=== PATIENT | female | born 1950 | race Caucasian/White ===

== ENCOUNTER 2022-06-16 09:31 | Outpatient (CLI) | payer MEDICARE, OTHER ==
[2022-06-16 10:13] LABS: ALBUMIN 4.7 g/dL (3.2-5.5); ALBUMIN/GLOBULIN RATIO 1.3 (1.0-2.2); ALKALINE PHOSPHATASE 80 IU/L (42-121); ALT ALANINE AMINOTRANSFERASE 19 IU/L (10-60); AST ASPARTATE AMINOTRANSFERASE 20 IU/L (10-42); BILIRUBIN,TOTAL 0.8 mg/dL (0.2-1.0); BUN - BLOOD UREA NITROGEN 19 mg/dL (6-20); CALCIUM 9.8 mg/dL (8.5-10.3); CARBON DIOXIDE - CO2 28 mmol/L (21-32); CHLORIDE 104 mmol/L (101-111); CHOL/HDL RATIO 2.2 (<4.4); CHOLESTEROL 155 mg/dL; CREATININE 0.6 mg/dL (0.4-1.0); GFR - MDRD 99 (>89); GLUCOSE 141 mg/dL (70-100); HDL CHOLESTEROL 70 mg/dL; POTASSIUM 4.2 mmol/L (3.5-5.0); SODIUM 141 mmol/L (135-145); TOTAL PROTEIN 8.2 g/dL (6.7-8.2); TRIGLYCERIDES 30 mg/dL
[2022-06-16 11:12] LABS: ESTIMATED AVERAGE GLUCOSE 114 mg/dL (70-100); HEMOGLOBIN A1c% 5.6 % (4.27-6.07)
== END 2022-06-16 09:32 | disposition home or self-care (01) ==
LOC: LAB 09:31
PROVIDERS: ATTEND Internal Medicine
DX: E11.9 Type 2 diabetes mellitus without complications (principal); E78.5 Hyperlipidemia, unspecified
CPT/HCPCS: 36415; 80053; 80061; 83036; 83721

== ENCOUNTER 2022-09-15 10:35 | Outpatient (CLI) | payer MEDICARE, OTHER | END 2022-09-15 10:36 | disposition home or self-care (01) | LOC: NS 10:35 | PROVIDERS: ATTEND Internal Medicine | DX: E11.9 Type 2 diabetes mellitus without complications (principal); Z71.3 Dietary counseling and surveillance; Z71.89 Other specified counseling; Z79.84 Long term (current) use of oral hypoglycemic drugs | CPT/HCPCS: 97802 ==

== ENCOUNTER 2022-11-23 08:50 | Outpatient (CLI) | payer MEDICARE, OTHER ==
[2022-11-23 09:18] LABS: ALBUMIN 4.6 g/dL (3.2-5.5); ALBUMIN/GLOBULIN RATIO 1.4 (1.0-2.2); BILIRUBIN,TOTAL 0.7 mg/dL (0.2-1.0); CALCIUM 9.9 mg/dL (8.5-10.3); CREATININE 0.8 mg/dL (0.6-1.3); POTASSIUM 4.1 mmol/L (3.5-4.5); TOTAL PROTEIN 7.8 g/dL (6.4-8.9)
[2022-11-23 14:16] LABS: ESTIMATED AVERAGE GLUCOSE 111 mg/dL (70-100); HEMOGLOBIN A1c% 5.5 % (4.27-6.07)
== END 2022-11-23 08:51 | disposition home or self-care (01) ==
LOC: LAB 08:50
PROVIDERS: ATTEND Internal Medicine
DX: E11.9 Type 2 diabetes mellitus without complications (principal); E53.8 Deficiency of other specified B group vitamins
CPT/HCPCS: 36415; 80053; 82607; 83036

== ENCOUNTER 2023-12-20 10:27 | Emergency (ER) | payer MEDICARE, OTHER ==
[2023-12-20 11:01] VITALS: BP 132/69; O2SAT 99
--- NOTE | 2023-12-20 11:02 | ED Physician Documentation ---
History of Present Illness - Stated complaint Stated Complaint: RT WRIST PX - Chief complaint Chief Complaint: Ext Problem - Additonal information Additional information: 73-year-old female with history of high cholesterol and type 2 diabetes [id number] presents emergency department for worsening right wrist pain. Patient says that she first started to notice the pain on Monday and it has gradually increased in severity after a busy weekend of lifting heavy boxes. She said that yesterday she had tried to apply heat to it which made it significantly worse. She has had no fevers or chills says that her type 2 diabetes is very well-controlled no nausea or vomiting. Most of the pain occurs with any rotation of the wrist Internal or external rotation And pain also gets worse with flexion. She did buy a wrist immobilizer which has been helpful for the pain. PD PAST MEDICAL HISTORY - Past Medical History Past Medical History: Yes Cardiovascular: High cholesterol Endocrine/Autoimmune: Type 2 diabetes - Past Surgical History Past Surgical History: Yes HEENT: Cataracts - Present Medications Home Medications: Ambulatory Orders Medication Instructions Recorded Confirmed Atorvastatin [Lipitor] 10 mg PO HS 04/19/22 04/19/22 Metformin HCl [Metformin ER 1,000 mg PO DAILY 04/19/22 04/19/22 Gastric] cephALEXin [Keflex] 500 mg PO Q6H 7 Days #28 cap 12/20/23 - Allergies Allergies/Adverse Reactions: Allergies Allergy/AdvReac Type Severity Reaction Status Date / Time No Known Drug Allergies Allergy Verified 12/20/23 10:38 - Social History Does the pt smoke?: No Smoking Status: Never smoker Does the pt drink ETOH?: Yes Does the pt have substance abuse?: No PD ED PE NORMAL - Vitals Vital signs reviewed: Yes - General General: Alert and oriented X 3, No acute distress, Well developed/nourished - Derm Derm: Other (Right wrist: limited ROM, tenderness with flexion, tenderness with palpation over the palmar side, erythema, warm to the touch, streaking up mid- forarm) - Extremities Extremities: Other Results - Vitals Vitals: Vital Signs - 24 hr 12/20/23 12/20/23 12/20/23 10:38 11:08 12:25 Temperature 36.7 C Heart Rate 85 Respiratory 16 17 16 Rate Blood Pressure 132/69 H O2 Saturation 99 Oxygen O2 Source Room air - Rads (name of study) Three-view right wrist x-ray Relevant Findings:: Final report received, EMP independent interpretation of test, Other (No acute bony abnormalities or findings.) PD Medical Decision Making - ED course ED course: 73-year-old female presents emerged department for nontraumatic right wrist pain. She originally was wearing a splint upon arrival to the emergency 73-year-old female presents emerged department for nontraumatic right wrist pain. She originally was wearing a splint upon arrival to the emergency department and did say that the immobilization of the splint did help with the pain. After removing the splint there is quite a bit of erythema to the palmar aspect of the wrist with what appeared to be red streaking up the arm. I had her remove her splint and keep her splint off for the next hour or so to see if the erythema would go away after reevaluation it appeared to be more warm and more red to the touch with streaking staying there consistently. X-rays were complete for further evaluation and do not reveal any acute bony abnormalities or findings. She has not had any fevers or chills unshowered body systemic infection but given that the streaking and the erythema has stayed there present I do believe that she is experiencing lymphangitis she is started on Keflex here in the emergency department and prescription of Keflex was sent to her preferred pharmacy she is given strict ER return precautions and told to continue to immobilize her wrist if she finds this to be helpful with taking the immobilizer off periodically throughout the day doing some flexion extension exercises. She is told if after 48 hours of antibiotics and no improvement of symptoms she needs to report back to the nearest emergency department. Departure - Departure Disposition: 01 Home, Self Care Clinical Impression: Lymphangitis, Flexor tendinitis of hand Instructions: ED Lymphangitis Prescriptions: cephALEXin [Keflex] 500 mg PO Q6H 7 Days #28 cap Comments: Thank you for trusting us with your care. 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 If after 48 hours you are not having any improvement of symptoms please present back to the nearest emergency department For further evaluation. If after 4 to 6 weeks you are still experiencing pain and discomfort in that wrist I would follow-up with hand surgeon Dr. Israel at [facility] or other hand specialist of your choice. You can take 1000 mg of Tylenol every 8 hours and 500 mg of Aleve every 12 hours for pain and discomfort apply ice 20 minutes on at a period of time. Forms: PCP List Discharge Date/Time: 12/20/23 12:26
[2023-12-20] MEDS: KETOROLAC 15 MG/ML VIAL IM STA (11:15)
--- NOTE | 2023-12-20 11:37 | XRAY Report ---
PROCEDURE: Wrist 3+V RT INDICATIONS: dorsal wrist pain and swelling TECHNIQUE: 4 views of the wrist were acquired. COMPARISON: None. FINDINGS: Bones: No fractures or dislocations. No suspicious bony lesions. Soft tissues: No suspicious soft tissue calcifications or masses. IMPRESSION: No acute bony abnormality. Reviewed by: Noe Thrasher MD on 12/20/2023 11:35 AM PDT Approved by: Noe Thrasher MD on 12/20/2023 11:35 AM PDT Station ID: [id number]
[2023-12-20] MEDS: cephALEXin 250 MG CAPSULE PO STA (11:52)
== END 2023-12-20 12:26 | disposition home or self-care (01) ==
LOC: ED 10:27
DX: I89.1 Lymphangitis (principal); M77.8 Other enthesopathies, not elsewhere classified
CPT/HCPCS: 73110; 96372; 99283; 99284; A9270